=== PATIENT | female | born 1965 | race Caucasian/White ===

== ENCOUNTER 2024-04-17 23:15 | Inpatient (IN) | payer OTHER, SELFPAY ==
[2024-04-17 19:53] VITALS: BMI 27.4
[2024-04-17 19:54] VITALS: BP 141/78
[2024-04-17 20:15] LABS: % Basophils 0.8 % (0-2); % Eosinophils 1.2 % (0-6); % Immature Granulocytes 0.3 % (0-0.5); % Monocytes 5.8 % (1.7-9.3); % Neutrophils 83.9 % (42.2-75.2); Absolute Basophils 0.1 10^3/uL (0-0.2); Absolute Eosinophils 0.1 10^3/uL (0-0.7); Absolute Lymphocytes 0.9 10^3/uL (1.2-3.4); Absolute Monocytes 0.7 10^3/uL (0.1-0.6); Absolute Neutrophils 9.5 10^3/uL (1.4-6.5); Hemoglobin 12.7 g/dL (12.0-16.0); Mean Corp Hgb Conc. 35.3 g/dL (33.0-37.0); Mean Corpuscular Hgb 29.7 pg (27.0-31.0); Mean Corpuscular Volume 84.1 fL (81.0-99.0); Mean Platelet Volume 10.2 fL (7.4-10.4); Nucleated Red Blood Cells % 0 %; Platelet Count 242 10^3/uL (130-400); Red Blood Cell Count 4.28 10^6/uL (4.20-5.40); Red Cell Dist. Width 13.2 % (11.5-14.5); White Blood Cell Count 11.3 10^3/uL (4.8-10.8)
[2024-04-17 20:55] LABS: AST (SGOT) 499 U/L (14-36); Albumin 3.9 g/dl (3.5-5.0); Alkaline Phosphatase 207 U/L (38-126); Blood Urea Nitrogen 16 mg/dl (7-17); Calcium 9.1 mg/dl (8.4-10.2); Chloride 109 mmol/L (98-107); Glucose 141 mg/dl (70-99); Potassium 4.5 mmol/L (3.5-5.1); Sodium 138 mmol/L (135-145); Total Bilirubin 6.1 mg/dl (0.2-1.3); Total Protein 6.7 g/dl (6.3-8.2); eGFR > 60.00
--- NOTE | 2024-04-17 21:15 | ED.GENMED ---
History of Present Illness
General
Chief Complaint: Abdominal Pain
Source: patient
Exam Limitations: none
Time Seen by Provider: 04/17/24 21:06
Travel History
Have you had any contact with someone who has COVID-19?: No
Do you have any symptoms of coronavirus? Fever > 100 degrees, chills, cough, shortness of breath, sore throat, loss of taste or smell, muscle aches, or headache?: No
History of Present Illness
History of Present Illness:
This is a 58 year old female that comes in with c/o upper abd pain. States that this pain started on Thursday in the upper abd. States that she feels bloated. States that she also has back pain. State that it started [place] the [place] so she
went home and used a heating pad. States that the pain was decreased on Thursday. Today the pain got worse and she is vomiting. States that she had chest pain, SOB and pain with deep breathing. Denies any fever, chills, diarrhea, headache,
dizziness, urinary burning.
Past History
Past History
ED Past Medical History: None; Negative Asthma, HTN, Hypercholesterolemia or NIDDM
ED Past Surgical History: , Orthopedic (right knee surgery) and Other (Breast augmentation, Vericous veins)
Social History
Tobacco: Former smoker
Alcohol: Occasional
Personal:
Living: with family
Review of Systems
Review of Systems
All Other Systems: ROS reviewed and negative except as documented in HPI and ROS
Constitutional: Reports no symptoms; Denies fever or chills
EENT: Reports no symptoms
Respiratory: Reports trouble breathing; Denies cough
Cardiac: Denies chest pain
ABD/GI: Reports abdominal pain, nausea and vomiting; Denies diarrhea
: Reports no symptoms; Denies dysuria, frequency or urgency
Musculoskeletal: Reports no symptoms
Skin: Reports no symptoms
Neurological: Reports no symptoms; Denies dizzy or headache
Psychiatric: Reports no symptoms
Phy Exam
General Physical Exam
General Presentation: mild distress
General age: appears stated age
General Skin: warm and dry
General Habitus: normal
General Mental: alert
General Hydration: appears well hydrated
ENT Exam
ENT Exam: TM's normal, pharynx normal and neck supple
Eye Exam
Eye Exam: EOMI
Cardiovascular Exam
Cardiovascular Exam: regular rate/rhythm, no edema, no murmur and normal peripheral pulses
Pulmonary Exam
Pulmonary Exam: lungs clear, no respiratory distress, no rales, chest non tender, no crackles, no rhonchi, no wheezing and no cough
Gastrointestinal Exam
Gastrointestinal Exam: normal bowel sounds, soft, no organomegaly, no pulsatile mass, non distended and tender (right upper abd tenderness with palpation)
Musculoskeletal Exam
Musculoskeletal Exam: full ROM and no edema
Skin Exam
Skin Exam: normal color, warm/dry, no rash and no petechia
Psychiatric Exam
Psychiatric Exam: normal mood/affect
Course
Orders/Labs/Results
Orders:
Orders
04/17/24 19:57
Electrocardiogram (*1) Urgent
Reason for Study: Abdominal Pain
EKG- Treatment ONCE
04/17/24 20:10
Complete Blood Count/With Diff Urgent
Comprehensive Metabolic Panel Urgent
Direct Bilirubin Urgent
Comment: ADD ON
Lipase Urgent
04/17/24 21:14
HYDROmorphone [Dilaudid] 0.5 mg IV NOW STA
Ondansetron Injectable [Zofran] 4 mg IV NOW STA
US Abdomen Complete/Upper Urgent
Comment:
Reason For Exam: Right upper abd pain
04/17/24 21:15
0.9% Sodium Chloride 1000 ml [Nss] 1,000 ml IV BOLUS
04/17/24 21:17
Add On- LAB Urgent
Tests Added?: Direct isacc
Electrocardiogram (*1) Urgent
Reason for Study: Abdominal Pain
EKG- Treatment ONCE
CR Chest - 2 Views Urgent
Comment:
Reason For Exam: SOB
04/17/24 21:27
Troponin I Urgent
04/17/24 22:10
HYDROmorphone [Dilaudid] 1 mg .ROUTE .STK-MED ONE
04/17/24 22:11
HYDROmorphone [Dilaudid] 1 mg IV NOW STA
Abnormal Lab Results
04/17/24
20:10
WBC 11.3 H 10^3/uL
(4.8-10.8)
Hct 36.0 L %
(37.0-47.0)
Absolute Neuts (auto) 9.5 H 10^3/uL
(1.4-6.5)
Absolute Lymphs (auto) 0.9 L 10^3/uL
(1.2-3.4)
Absolute Monos (auto) 0.7 H 10^3/uL
(0.1-0.6)
Neutrophils % 83.9 H %
(42.2-75.2)
Lymphocytes % 8.0 L %
(20.5-51.1)
Chloride 109 H mmol/L
(98-107)
Carbon Dioxide 16 L mmol/L
(22-30)
Glucose 141 H mg/dl
(70-99)
Total Bilirubin 6.1 H mg/dl
(0.2-1.3)
Direct Bilirubin 4.5 H mg/dl
(0.0-0.4)
AST 499 H U/L
(14-36)
ALT 1076 H* U/L
(0-35)
Alkaline Phosphatase 207 H U/L
(38-126)
04/17/24 20:10
04/17/24 20:10
WBC very slightly elevated. Chloride elevated. Glucose nonfasting. Total isacc elevation. AST/ALT elevation, Alk phos elevation. Direct isacc elevated at 4.5,
Vital Signs
Initial and Last Documented VS:
Initial Vital Signs
Temp Pulse Resp BP Pulse Ox
98.2 F 71 14 141/78 99
04/17/24 19:54 04/17/24 19:54 04/17/24 19:54 04/17/24 19:54 04/17/24 19:54
Last Documented Vital Signs
Temp Pulse Resp BP Pulse Ox
98.2 F 71 14 141/78 99
04/17/24 19:54 04/17/24 19:54 04/17/24 19:54 04/17/24 19:54 04/17/24 19:54
MDM/Problems Addressed
Differential Diagnosis Includes:
Gallbladder disease,
MDM/Problems Addressed:
This is a 58 year old female that comes in with c/o upper abd pain. States that this started on Thursday. IT was better on Thursday and today it was worse.
Will get labs, US, give IV fluids, chest X-ray and medicate for pain.
Back into see patient. Explained that she would be admitted due to acute cholecystitis. Attempted to have General surgery admit patient but they felt Hospitalist would be better. Will give IV antibiotics and admit. Hospitalist notified.
Chronic conditions affecting care:
NA
Acute Exacerbation and/or Progression of Chronic Illness:
NA
*Radiology
Radiology exam reviewed: radiology read reviewed (US-Multiple small gallstones. Mild common bile duct dilation. These findings can be seen with acute cholecystitis. Clinical and laboratory Correlation recommended. Nonvisualization of pancreas and
proximal IVS> Mild hepatomegaly. )
*Pulse Oximetry
Patient hypoxic: no
*EKG
Interpreted by ED Provider?: NA
Rate: EKG- N/A
*Supervisor Shaving And Splitting Interpretation
Rate: Supervisor Shaving And Splitting- N/A
*Critical Care Note
Total Time (30-74mins, 75-104mins- exclusive of procedures): Not Applicable
ED Attending Note
-
Portions of this chart may have been created with voice recognition software.� Occasional wrong word or��sound alike� substitutions may have occurred due to the inherent limitations of voice recognition software.
Discharge Plan
Departure
Patient Disposition: Admit
Date of Disposition: 04/17/24
Time of Disposition: 22:27
Admit to: Med/Surg
Presentation/result/management discussed w/ accepting MD/DO: Hospitalist
Patient with high blood pressure during this ER visit?: Yes
Condition: Good
Covid-19: Not Applicable
Discharge Problem:
Acute cholecystitis, Elevated liver enzymes
Referrals:
UNKNOWN - PT DOES,NOT KNOW [Family Provider] -
Interventions
Interventions:
*Risk Screen - Suicide Last Done: 04/17/24 19:54
*General Assessment Last Done: 04/17/24 19:54
*Neglect/Abuse Screening Last Done: 04/17/24 19:54
Discharge Date and Time
Print Language: GAMBIAN
[2024-04-17 21:16] LABS: ALT (SGPT) 1076 U/L (0-35)
[2024-04-17] MEDS: DILAUDID 0.5 MG IV (21:18)
[2024-04-17] MEDS: ZOFRAN 4 MG IV (21:18)
[2024-04-17] MEDS: NSS 1000 IV (21:19)
[2024-04-17 21:38] LABS: Carbon Dioxide 16 mmol/L (22-30)
[2024-04-17 21:56] LABS: Direct Bilirubin 4.5 mg/dl (0.0-0.4)
[2024-04-17] MEDS: DILAUDID 1 MG IV (22:11)
[2024-04-17 22:16] LABS: Troponin I < 0.012 ng/ml
--- NOTE | 2024-04-17 22:34 | HPS.HSE ---
Addendum entered and electronically signed by Justino Tirado DO 04/17/24 23:36:
Patient seen and examined independently. Agree with findings and plan as set forth by JOHNNIE Medina.
Patient is a 58y F with no significant PMH who presents to ED complaining of abdominal pain, N/V. Patient states that her current symptoms started on Thursday. The following day she felt somewhat improved; however, today the symptoms returned.
She had a similar episode about one month ago which resolved within 24 hours. Evaluation in the ED today is consistent with acute calculous cholecystitis.
Ass:
Acute Calculous Cholecystitis
Abnormal LFTs
Plan:
Admit for further evaluation and treatment.
NPO, IVFs, IV abx and pain control.
Surgery evaluation for cholecystectomy.
GI evaluation given LFT pattern - ? ERCP.
Original Note:
Family Physician
-
Family Physician: NOT KNOW UNKNOWN - PT DOES
Chief Complaint
-
Right upper abdominal pain, nausea, vomiting
History of Present Illness
58-year-old female complaining of upper abdominal pain started on Thursday 2 days ago along with bloating and back pain. She reports the pain became worse today when she started vomiting along with taking a deep breath. She states she was in [place] approximately 6 weeks ago when she had similar pain she went to an urgent care where they gave her some IV fluids and Zofran she was sent home and told she had a 'stomach virus'. She denies fever, chills, cough, chest pain, palpitations,
urinary symptoms. Past medical history includes former smoker, section, breast augmentation, varicose vein repair, right knee surgery, renal calculi 10 years ago
Medical History
Past Medical History
Past Medical History: Reports Other
Additional Past Medical History:
Former smoker
Renal calculi 10 years ago passed on own
Past Surgical History: Reports Other
Additional Past Surgical History:
section
Knee surgery
breast augmentation, varicose vein repair,
right knee surgery meniscus repair
Social History
Tobacco: Former Smoker (Quit age 21)
Alcohol: Occasional
Drug: None
Personal:
Living: With Family ( Ph[place])
Employment: Retired
Family History
Family History: Other (Father [place] age 84, mother living age 88 hypertension, DM 2, history of intestinal torsion)
Allergies / Home Medications
Allergies reflects when Allergies were last updated in [employer].
Home Medications with original date entered in [employer]
Allergy/Medication List:
Allergies
Allergy/AdvReac Type Severity Reaction Status Date / Time
No Known Allergies Allergy Unverified 04/17/24 19:53
Review of Systems
-
History Source: Patient
A 12 point ROS was completed and negative except as noted: Yes
Constitutional: Denies Fever or Chills
EENT: Denies Sore Throat or Runny Nose
Respiratory: Denies Cough or Trouble Breathing
Cardiac: Reports Chest Pain (Right-sided to back); Denies Diaphoresis, Palpitations or Syncope
Abdomen/GI: Reports Abdominal Pain (Right upper quadrant /midepigastric), Nausea and Vomiting; Denies Diarrhea, Constipated, Bloody Stools or Black Stools
: Denies Dysuria, Frequency, Flank Pain, Incontinence, Difficulty Voiding or Urgency
Musculoskeletal: Denies Joint Pain or Edema
Skin: Denies Itching or Rash
Neurological: Denies Dizzy, Headache or Weakness
Endocrine: Reports No Symptoms
Hematologic/Lymphatic: Reports No Symptoms
Psych: Reports Calm
Physical Exam
Vital Signs
Vital Signs
Temp Pulse Resp BP Pulse Ox
98.2 F 71 14 141/78 99
04/17/24 19:54 04/17/24 19:54 04/17/24 19:54 04/17/24 19:54 04/17/24 19:54
Physical Exam
General: Comfortable and Conversant; No Fever or Chills
HEENT: NormoCephalic, Anicteric, Moist mucous membranes, PERRLA, Pesotum Conjunctivae and No Ptosis
Respiratory: Clear; No Wheezes, Rales or Rhonchi
Cardiac: S1/S2 and Regular Rhythm; No Murmur, Rub, Gallop or Peripheral Edema
GI: Soft, Non Distended, Normal Bowel Sounds, Tender (Right upper quadrant, midepigastric) and No Hepatosplenomegaly
Rectal: Deferred by Provider
Genito-urinary: Deferred by me
Musculoskeletal: No Clubbing, No Cyanosis and No Edema
Skin: Warm and Dry; No Rash
Neuro: AO x 3, No Motor Deficits, Nonfocal/grossly intact, Cranial Nerves Intact and No Sensory Deficits; No Slurred Speech, Facial Droop or Tremors
Psych: Calm
Laboratory Results
-
04/17/24 20:10
04/17/24 20:10
Laboratory Results
Total Bilirubin 6.1 mg/dl (0.2-1.3) H 04/17/24 20:10
AST 499 U/L (14-36) H 04/17/24 20:10
ALT 1076 U/L (0-35) H* 04/17/24 20:10
Alkaline Phosphatase 207 U/L (38-126) H 04/17/24 20:10
Troponin I < 0.012 ng/ml 04/17/24 21:27
Data Reviewed
-
CT Scan: Report Reviewed by me
Lab Data: Labs Reviewed by me
Impression/Plan
-
Impression/plan:
Admit to [facility]
#Acute cholecystitis with Acute transaminitis with CBD duct dilatation
WBC 11.3 with left shift, 98 2, HR 71, 141/78
-N.p.o.
-IV NSS
-IV Zofran, IV pain control
-IV Zosyn
-Iv PPI
-Consult surgery
-Follow CBC, CMP
Abdominal ultrasound:Multiple small gallstones. Mild common bile duct dilatation. These findings can be seen with acute cholecystitis.
#Former smoker
quit at age 21
#Hx of renal calculi 10 years ago
-Reports past unknown
#Breast augmentation hx
#Varicose vein repair hx
Dvt proph
- scd's
Full code
[2024-04-17 22:47] VITALS: BP 131/78
[2024-04-17] MEDS: ZOSYN 50 IV (23:07)
[2024-04-17 23:15] LABS: Lipase > 4000 U/L (23-300)
[2024-04-18] VITALS (13 sets, daily range): BP systolic 12–139; BP diastolic 53–87; BMI 28.7
[2024-04-18] MEDS: DILAUDID 1 MG IV ×3 (03:35→12:32)
[2024-04-18] MEDS: NSS 1000 IV ×4 (03:39→22:08)
[2024-04-18] MEDS: ZOSYN 50 IV ×3 (06:00→17:47)
[2024-04-18 06:15] LABS: % Basophils 0.4 % (0-2); % Eosinophils 1.3 % (0-6); % Immature Granulocytes 0.3 % (0-0.5); % Lymphocytes 14.9 % (20.5-51.1); % Monocytes 6.8 % (1.7-9.3); % Neutrophils 76.3 % (42.2-75.2); Absolute Eosinophils 0.1 10^3/uL (0-0.7); Absolute Lymphocytes 1.4 10^3/uL (1.2-3.4); Absolute Monocytes 0.6 10^3/uL (0.1-0.6); Hematocrit 35.4 % (37.0-47.0); Hemoglobin 11.9 g/dL (12.0-16.0); Mean Corp Hgb Conc. 33.6 g/dL (33.0-37.0); Mean Corpuscular Hgb 29.3 pg (27.0-31.0); Mean Corpuscular Volume 87.2 fL (81.0-99.0); Mean Platelet Volume 11.2 fL (7.4-10.4); Nucleated Red Blood Cells % 0 %; Platelet Count 244 10^3/uL (130-400); Red Blood Cell Count 4.06 10^6/uL (4.20-5.40); Red Cell Dist. Width 13.3 % (11.5-14.5); White Blood Cell Count 9.1 10^3/uL (4.8-10.8)
--- NOTE | 2024-04-18 06:21 | PTCARENOTE ---
Pt admitted from ED at aprox 0200. Admission and assessment completed. IVF started to [facility]. Vitals stable. Pt with no c/o at that time. Son in room with patient. All questions answered. Pt due for MRI this am. Pt instructed to ring for assistance.
--- NOTE | 2024-04-18 06:22 | CON.GI ---
Consultation
-
Date/Time Consultation Performed: 04/18/2024
Performing Provider: Castillo Goodman MD
Reason for Consultation: abdominal pain, elevated LFT
Medical History
Chief Complaint / HPI
Chief Complaint: abdominal pain
History of Present Illness:
The patient is a 58-year-old female with past medical history as noted who presents abdominal pain and nausea. She had an episode about 6 weeks ago with similar symptoms which was self-limited, and interim have been doing well up until more
recently with the past several days has had a couple of episodes of severe pain, she describes as sharp, epigastrium, rating to the right side and back with associated nausea. Upon presentation she was found to have markedly elevated LFTs, and
ultrasound that showed gallstones though no significant pericholecystic fluid or gallbladder wall thickening, along with mild CBD dilation. She feeling better today with no further significant pain. She is noted dark urine over the past several
days during this time. She usually has no GI symptoms, last colonoscopy in [place] and okay by report. She denies any significant alcohol over the last week.
Past Medical History
Past Medical History: Other (kidney stones)
Past Surgical History: Other ( section Knee surgery breast augmentation, varicose vein repair, right knee surgery meniscus repair)
Social History
Tobacco: Former Smoker
Alcohol: Occasional
Family History
Family History: Reviewed & Not Pertinent
Allergies / Home Medications
Allergy/AdvReac Type Severity Reaction Status Date / Time
No Known Allergies Allergy Unverified 04/17/24 19:53
Review of Systems
-
All other systems: A 12 pt ROS was Negative except as stated above in HPI
Vital Signs
Temp Pulse Resp BP Pulse Ox
98.5 F 65 18 134/53 95
04/18/24 02:13 04/18/24 02:13 04/18/24 02:13 04/18/24 02:13 04/18/24 02:13
Physical Exam
Exam
General: NAD
HEENT: MMM, anicteric, no lymphadenopathy
Heart: Regular, no murmurs
Lungs: CTA bilaterally
Abdomen: normal bowel sounds, soft, mild right upper quadrant tenderness, no rebound or guarding, no masses, bruits or ascites
Extremeties: no edema
Skin: no rashes
Results
WBC 9.1 10^3/uL (4.8-10.8) 04/18/24 04:20
Hgb 11.9 g/dL (12.0-16.0) L 04/18/24 04:20
Hct 35.4 % (37.0-47.0) L 04/18/24 04:20
MCV 87.2 fL (81.0-99.0) 04/18/24 04:20
Plt Count 244 10^3/uL (130-400) 04/18/24 04:20
Absolute Neuts (auto) 7.0 10^3/uL (1.4-6.5) H 04/18/24 04:20
Sodium 138 mmol/L (135-145) 04/17/24 20:10
Potassium 4.5 mmol/L (3.5-5.1) 04/17/24 20:10
Chloride 109 mmol/L (98-107) H 04/17/24 20:10
Carbon Dioxide 16 mmol/L (22-30) L 04/17/24 20:10
BUN 16 mg/dl (7-17) 04/17/24 20:10
Creatinine 0.7 mg/dL (0.6-1.0) 04/17/24 20:10
Calcium 9.1 mg/dl (8.4-10.2) 04/17/24 20:10
Total Bilirubin 6.1 mg/dl (0.2-1.3) H 04/17/24 20:10
AST 499 U/L (14-36) H 04/17/24 20:10
ALT 1076 U/L (0-35) H* 04/17/24 20:10
Alkaline Phosphatase 207 U/L (38-126) H 04/17/24 20:10
Lipase > 4000 U/L (23-300) H* 04/17/24 20:10
Diagnostic Image Results:
US:
IMPRESSION: Multiple small gallstones. Mild common bile duct dilatation. These findings can be seen with acute cholecystitis. Clinical and laboratory correlation recommended.
Nonvisualization of pancreas and proximal IVC.
Mild hepatomegaly
Prior GI Procedures:
EGD:
Colonoscopy:
Assessment / Plan
-
1. Abdominal pain: With markedly elevated LFTs, gallstones noted on ultrasound with mild duct dilation, though no other suggestion of cholecystitis, most consistent with CBD stone. Her lipase was also greater than 4000, likely some component of
pancreatitis. At this point again her pain is improved, possibly passed CBD stone versus ball-valve effect. Will continue n.p.o., IV fluids, check MRI. If MRI is negative and LFTs improving then would assume passed stone, surgery consulted for
cholecystectomy.
-
-
Thank you for consultation and allowing me to participate in the patient's care. Please call the blood bank order control clerk GI physician during the after hours with any questions or concerns.
[2024-04-18 06:41] LABS: AST (SGOT) 346 U/L (14-36); Albumin 3.5 g/dl (3.5-5.0); Alkaline Phosphatase 184 U/L (38-126); Blood Urea Nitrogen 12 mg/dl (7-17); Calcium 8.5 mg/dl (8.4-10.2); Carbon Dioxide 20 mmol/L (22-30); Chloride 110 mmol/L (98-107); Estimated Creatinine Clearance 112 ml/min; Glucose 93 mg/dl (70-99); HDL Cholesterol 80 mg/dl; LDL Cholesterol, Calculated 70 mg/dl; Potassium 4.1 mmol/L (3.5-5.1); Sodium 137 mmol/L (135-145); Total Bilirubin 5.3 mg/dl (0.2-1.3); Total Cholesterol 160 mg/dl (50-199); Total Protein 5.9 g/dl (6.3-8.2); Triglyceride 51 mg/dl (10-149); Very Low Density Lipoprotein 10 mg/dl (0-30); eGFR > 60.00
[2024-04-18 06:58] LABS: ALT (SGPT) 906 U/L (0-35)
[2024-04-18] MEDS: PROTONIX IV 40 MG IV (08:17)
[2024-04-18] MEDS: NSS (PRESERVATIVE FREE) 10 ML IV (08:17)
--- NOTE | 2024-04-18 08:37 | CON.GS ---
Medical History
-
Chief Complaint: Abdominal pain
History of Present Illness:
Patient is a 58 yo F with a PMH of s/p , s/p breast augmentation, s/p varicose vein repair, and recently s/p RIGHT knee meniscus repair who presents to the hospital with epigastric and RUQ abdominal pain. She states that her symptoms began
a few days ago and have intermittently progressed since that time. She also reports a similar episode which self resolved approximately 6 weeks ago. She describes severe pain in the epigastrium and RUQ radiating to her back. Symptoms currently
have improved. Associated nausea. She reports jaundice, pale stools, and tea colored urine. No significant alcohol intake. No significant NSAID use. No reported issues with cholesterol.
Past Medical History
Past Medical History: None
Past Surgical History: , Orthopedic (RIGHT knee meniscus) and Other (Breast augmentation, varicose vein)
Social History
Tobacco: Non-Smoker
Alcohol: Occasional
Drug: None
Personal:
Living: With Family
Employment: Employed
Family History
Family History: Other (Mother and father may have had their gallbladders removed, uncertain)
Allergies / Home Medications
Allergy/AdvReac Type Severity Reaction Status Date / Time
No Known Allergies Allergy Unverified 04/17/24 19:53
�Medication �Instructions �Recorded �Confirmed �Type
No Meds [No Current Medications] 04/18/24 04/18/24 History
Review of Systems
-
A 10 point review of systems was completed, and was negative except as per HPI.
Physical Exam
Vital Signs
Temp Pulse Resp BP Pulse Ox
98.5 F 69 17 128/75 96
04/18/24 07:00 04/18/24 07:00 04/18/24 07:00 04/18/24 07:00 04/18/24 07:00
04/17/24 04/18/24 04/19/24
06:59 06:59 06:59
Actual Weight 83.121 kg
Body Mass Index (BMI) 28.7
Lab Results
04/18/24 04:20
04/18/24 04:20
WBC 9.1 10^3/uL (4.8-10.8) 04/18/24 04:20
Hgb 11.9 g/dL (12.0-16.0) L 04/18/24 04:20
Hct 35.4 % (37.0-47.0) L 04/18/24 04:20
Plt Count 244 10^3/uL (130-400) 04/18/24 04:20
Abs Immat Gran (auto) 0.0 10^3/uL (0-0.05) 04/18/24 04:20
Neutrophils % 76.3 % (42.2-75.2) H 04/18/24 04:20
Physical Exam
General: Well Developed, Well Nourished and No Apparent Distress
HEENT: Scleral Icterus
Respiratory: Non Labored Respirations
Cardiac: Regular Rhythm
GI: Soft, Non Distended, Tender (Epigastrium and RUQ with deep palpation) and Other (Nonperitoneal (no rebound or guarding))
Musculoskeletal: No Edema
Skin: Warm and Dry
Neuro: Nonfocal/Grossly Intact
Data Reviewed
-
Ultrasound: Image Personally Visualized and interpreted
Labs: Labs Reviewed by me
Assessment / Plan
-
Patient is a 58 yo F p/w gallstone pancreatitis
Natural history and pathophysiology of biliary and stone disease was discussed. Anatomy was reviewed utilizing pictorial images. Workup including ultrasound and labs were reviewed. Role of cholecystectomy and preventing future episodes of
pancreatitis and choledocholithiasis was reviewed. Timing of cholecystectomy TBD. GI consult noted. Plan for MRI today. All questions answered.
-- No plans for cholecystectomy today, timing TBD
-- GI consult noted, MRCP ordered
-- NPO, IVF
-- Abx: Zosyn
--- NOTE | 2024-04-18 09:30 | PTOTSP ---
Received order for PT from the ED and reviewed chart. Observed pt get OOB and ambulate into hallway without an assistive device, with steady gait, and get onto stretcher for test without any difficulty. No observed PT needs were identified. Will
sign off.
--- NOTE | 2024-04-18 11:24 | W.PN.HOSP.TC ---
Today's Communication/Plan
-
IVF
Zosyn
ERCP
Eventual cholecystectomy.
Assessment / Plan
Assessment / Plan
58-year-old female with right upper quadrant pain nausea vomiting. She was in [place] 6 weeks ago and had similar pain went to urgent care was treated with Zofran and IV fluids and was discharged.
MRI/MRCP-acute obstructing choledocholithiasis. Moderate extrahepatic and intrahepatic biliary dilatation proximal to the obstruction. Severely distended gallbladder containing stones. Acute interstitial edematous pancreatitis. Mild
hepatomegaly. 8.6 cm enhancing mass in the lateral left breast
USS abdomen-Multiple small gallstones. Mild common bile duct dilatation. These findings can be seen with acute cholecystitis. Clinical and laboratory correlation recommended.Nonvisualization of pancreas and proximal IVC.Mild hepatomegaly
CVS: S1-S2 normal
Chest: CTA B/L
Abdomen: Soft, mild mid bdomen tenderness, Bowel sounds present
Extremities: No edema
VASC TECH: Non focal exam
# Acute calculus cholecystitis with abnormal LFTs
Choledocholithiasis
N.p.o. IV fluids
Surgery following for cholecystectomy timing to be determined
Continue Zosyn
GI consulted for ERCP-Possibly today
# Gallstone pancreatitis likely
IV fluids
N.p.o.
Add on and follow lipase
# Metabolic acidosis-improving
# Breast mass-patient is aware that she needs eval evaluation as outpatient including mammogram/ultrasound
Dr.Donna Li's information given
#Alcohol use 2 glasses (Wine or Vodka) 3 times a week
Thiamine
# Quit smoking when she was 21 years old.
# DVT prophylaxis-Lovenox
# Full code
Discussed with and daughters at bed side
D/W RN
D/W GI
Anticipated Discharge: > 48 hours
Subjective/Interval History
-
Date of Service: April 18, 2024
Objective Data
-
Labs:
Laboratory Results
04/18/24
04:20
WBC 9.1
Hgb 11.9 L
Hct 35.4 L
Plt Count 244
Sodium 137
Potassium 4.1
Chloride 110 H
Carbon Dioxide 20 L
BUN 12
Creatinine 0.5 L
Glucose 93
Calcium 8.5
Total Bilirubin 5.3 H
AST 346 H
ALT 906 H*
Alkaline Phosphatase 184 H
Vital Signs:
Vital Signs
Temp Pulse Resp BP Pulse Ox
98.5 F 69 17 128/75 96
04/18/24 07:00 04/18/24 07:00 04/18/24 07:00 04/18/24 07:00 04/18/24 07:00
I&O
04/17/24 04/18/24 04/19/24
06:59 06:59 06:59
Intake Total 500 / 500
Balance 500 / 500
[2024-04-18 12:33] LABS: Lipase > 4000 U/L (23-300)
[2024-04-18] MEDS: THIAMINE INJECTION 200 MG IV (12:39)
--- NOTE | 2024-04-18 14:21 | CM ---
Attempted to meet with patient who was in surgery. Initial assessment completed with 2 daughters. Currently, patient lives with her in a 2 story home with B/B on 1st and 2nd floors with 1 step to enter ([place]). They have a primary
home on [address]. Patient has no DME or in-home services. 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 No history of psychiatric hospitalizations. [facility]acy is [facility] in [place] and PCP is Dr. Gasca in [place]. Discharge Plan of Care: Anticipate no needs.
--- NOTE | 2024-04-18 16:28 | PTOTSP ---
Orders received. Chart reviewed. Pt currently at independent level with basic self care, transfers and functional mobility in room and bathroom. Skilled OT services not indicated at this time. Will sign off.
--- NOTE | 2024-04-18 17:36 | CON.GS ---
Consultation
-
Date/Time Consultation Requested: 04/19/24 12:35
Date/Time Consultation Performed: 04/19/24 17:37
Requesting Provider: Kenisha
Performing Provider: Jen
Reason for Consultation: Left breast mass seen on MRI of abdomen
Medical History
-
Chief Complaint: Here for several days of abdominal pain; incidental mass seen on MRI of abd
History of Present Illness:
The patient is a 58 Y/O female with no increased risk for breast cancer other than a sister who had melanoma. She was admitted for choledocholithiasis and cholecystitis and underwent an ERCP today with sphincterotomy, stone extraction. Her MRI of
the abdomen showed a left breast mass. Patient had silicon implants placed 3 years ago in [place]. She has a history of surgical resection of a symptomatic left breast fibroadenoma about 13 years ago in a different quadrant of her left breast. She
denies feeling any masses or having any skin change, pain, or discharge. She is overdue for mammography and is post-menopausal.
Past Medical History
Past Medical History: Reviewed & Noncontributory
Social History
Tobacco: Non-Smoker
Personal:
Living: With Family
Family History
Family History: Reviewed & Not Pertinent
Allergies / Home Medications
Allergy/AdvReac Type Severity Reaction Status Date / Time
No Known Allergies Allergy Unverified 04/17/24 19:53
�Medication �Instructions �Recorded �Confirmed �Type
No Meds [No Current Medications] 04/18/24 04/18/24 History
Review of Systems
-
History Source: Patient
All other systems: Negative unless noted
A 10 point review of systems was completed, and was negative except as per HPI.
Physical Exam
Vital Signs
Temp Pulse Resp BP Pulse Ox
98.2 F 68 16 139/87 96
04/18/24 16:00 04/18/24 16:00 04/18/24 16:00 04/18/24 16:00 04/18/24 16:00
04/17/24 04/18/24 04/19/24
06:59 06:59 06:59
Actual Weight 83.121 kg
Body Mass Index (BMI) 28.7
Lab Results
04/18/24 04:20
04/18/24 04:20
WBC 9.1 10^3/uL (4.8-10.8) 04/18/24 04:20
Hgb 11.9 g/dL (12.0-16.0) L 04/18/24 04:20
Hct 35.4 % (37.0-47.0) L 04/18/24 04:20
Plt Count 244 10^3/uL (130-400) 04/18/24 04:20
Abs Immat Gran (auto) 0.0 10^3/uL (0-0.05) 04/18/24 04:20
Neutrophils % 76.3 % (42.2-75.2) H 04/18/24 04:20
Physical Exam
General: Well Developed, Well Nourished and No Apparent Distress
HEENT: Normocephalic and Anicteric
Respiratory: Clear
Breast: Other (bilateral implants in place, no adenopathy, no palpable masses)
Musculoskeletal: No Clubbing and No Cyanosis
Skin: Warm and Dry
Neuro: Awake and Alert
Hematologic/Lymphatic: No Lymphadenopathy
Psych: Calm
Data Reviewed
-
Radiology: Image Personally Visualized and interpreted
MRI: Image Personally Visualized and interpreted
Medical Tests (Nuc Med, Echo etc): Discussed with Patient
Labs: Labs Reviewed by me
Total Time Spent with Patient (in minutes): 15
Assessment / Plan
-
Left breast mass found incidentally. Imaging indicates most likely benign lymph node or another fibroadenoma. This can be worked up as an outpatient. Will send orders to [facility].
Pt should focus on GI issues and recovery. Family informed and feels relieved.
[2024-04-18] MEDS: LOVENOX 40 MG SC (17:47)
[2024-04-19] VITALS (11 sets, daily range): BP systolic 113–125; BP diastolic 52–73
[2024-04-19] MEDS: ZOSYN 50 IV ×4 (00:59→17:35)
[2024-04-19] MEDS: NSS IV (03:36)
[2024-04-19] MEDS: NSS 1000 IV ×4 (04:04→22:07)
--- NOTE | 2024-04-19 06:26 | W.PN.GI.CBS2 ---
Today's Communication / Plan
-
no other GI intervention
Assessment / Plan
-
Pt with CBD stone s/p ERCP, cholecystitis. Pain improved markedly after ERCP
- surgery following for cholecystectomy
no other GI intervention at this point.
will sign off call with questions.
Subjective
Subjective
Date of Service: April 19, 2024
Pt w/o any pain after the ERCP. No nausea/vomiting
Objective
Data Reviewed
Laboratory Data:
Laboratory Results
Total Bilirubin 5.3 mg/dl (0.2-1.3) H 04/18/24 04:20
AST 346 U/L (14-36) H 04/18/24 04:20
ALT 906 U/L (0-35) H* 04/18/24 04:20
Alkaline Phosphatase 184 U/L (38-126) H 04/18/24 04:20
Lipase > 4000 U/L (23-300) H* 04/18/24 04:20
Vital Signs and I&O:
Vital Signs
Temp Pulse Resp BP Pulse Ox
99 F 61 18 134/76 98
04/18/24 23:19 04/18/24 23:19 04/18/24 23:19 04/18/24 23:19 04/18/24 23:19
I&O
04/17/24 04/18/24 04/19/24
06:59 06:59 06:59
Intake Total 500 / 500 2980 / 2980
Balance 500 / 500 2980 / 2980
Physical Exam
Physical Exam
GI: Soft and Non Tender
[2024-04-19 06:32] LABS: Hematocrit 31.1 % (37.0-47.0); Hemoglobin 10.6 g/dL (12.0-16.0); Mean Corp Hgb Conc. 34.1 g/dL (33.0-37.0); Mean Corpuscular Hgb 29.4 pg (27.0-31.0); Mean Corpuscular Volume 86.4 fL (81.0-99.0); Platelet Count 199 10^3/uL (130-400); Red Cell Dist. Width 13.4 % (11.5-14.5); White Blood Cell Count 8.3 10^3/uL (4.8-10.8)
[2024-04-19 07:03] LABS: ALT (SGPT) 556 U/L (0-35); AST (SGOT) 136 U/L (14-36); Albumin 2.8 g/dl (3.5-5.0); Alkaline Phosphatase 158 U/L (38-126); Blood Urea Nitrogen 9 mg/dl (7-17); Calcium 7.9 mg/dl (8.4-10.2); Carbon Dioxide 21 mmol/L (22-30); Chloride 112 mmol/L (98-107); Direct Bilirubin 1.4 mg/dl (0.0-0.4); Estimated Creatinine Clearance 112 ml/min; Glucose 93 mg/dl (70-99); Sodium 138 mmol/L (135-145); Total Bilirubin 2.3 mg/dl (0.2-1.3); Total Protein 5.1 g/dl (6.3-8.2); eGFR > 60.00
[2024-04-19 07:47] LABS: Lipase 2991 U/L (23-300)
[2024-04-19] MEDS: THIAMINE INJECTION 200 MG IV (08:10)
[2024-04-19] MEDS: NSS (PRESERVATIVE FREE) 10 ML IV (08:10)
[2024-04-19] MEDS: PROTONIX IV 40 MG IV (08:10)
--- NOTE | 2024-04-19 08:33 | W.PN.GS2 ---
Today's Communication / Plan
-
-- Laparoscopic cholecystectomy
Assessment / Plan
-
Patient is a 58 yo F p/w gallstone pancreatitis
PPD#1 s/p ERCP with stone removal
Clinically improved. Less abdominal pain. Labs trending down.
Natural history and pathophysiology of biliary and stone disease has been discussed. Anatomy has been reviewed. Role of cholecystectomy and preventing future episodes of gallstone pancreatitis was discussed. Recommend cholecystectomy.
Plan for a laparoscopic cholecystectomy with possible cholangiogram. The procedure itself, as well as the risks, benefits, and alternatives was discussed. Specifically, we discussed the risks of bleeding, infection, injury to surrounding
structures (bowel, bile ducts), CBD injury, need for open procedure. Typical postprocedure recovery including pain management in the 10 to 20% risk of fluctuations in GI function was discussed. All questions answered. Consent signed.
-- Laparoscopic cholecystectomy
-- NPO, IVF
-- Zosyn
Subjective Data
-
Date of Service: April 19, 2024
No major complaints. Pain improved. Denies nausea or vomiting with clears yesterday. No fevers.
Objective Data
-
Intake and Output
04/18/24 04/19/24 04/20/24
06:59 06:59 06:59
Intake Total 500 / 500 2980 / 2980
Balance 500 / 500 2980 / 2980
Intake:
Oral fluids 480 / 480
IV fluids (Total) 500 / 500 2400 / 2400
IV piggybacks 100 / 100
Other:
Number of approximated MODERATE 3
amounts of urine
Number of approximated LARGE 1
amounts of urine
Vital Signs
Temp Pulse Resp BP Pulse Ox
97.8 F 57 18 124/71 100
04/19/24 07:22 04/19/24 07:22 04/19/24 07:22 04/19/24 07:22 04/19/24 08:00
Lab Results
04/19/24 05:12
04/19/24 05:12
Calcium 7.9 mg/dl (8.4-10.2) L 04/19/24 05:12
Total Bilirubin 2.3 mg/dl (0.2-1.3) H D 04/19/24 05:12
Direct Bilirubin 1.4 mg/dl (0.0-0.4) H 04/19/24 05:12
AST 136 U/L (14-36) H 04/19/24 05:12
ALT 556 U/L (0-35) H* 04/19/24 05:12
Alkaline Phosphatase 158 U/L (38-126) H 04/19/24 05:12
Total Protein 5.1 g/dl (6.3-8.2) L 04/19/24 05:12
Albumin 2.8 g/dl (3.5-5.0) L 04/19/24 05:12
Physical Exam
-
Gen: NAD
Abd: soft, minimal tenderness in epigastrium, ND, non-peritoneal
--- NOTE | 2024-04-19 08:36 | W.SUR.PREOP ---
Pre-Operative Surgical Note
-
I have examined this patient prior to the performance of the scheduled procedure.
The patient's condition is unchanged from the time of the current History and
Physical and the patient is able to undergo the scheduled procedure.
--- NOTE | 2024-04-19 11:46 | W.PN.HOSP.TC ---
Today's Communication/Plan
-
Lap Estela today
Continue IVF and NPO
Continue AB
Assessment / Plan
Assessment / Plan
58-year-old female with right upper quadrant pain nausea vomiting. She was in [place] 6 weeks ago and had similar pain went to urgent care was treated with Zofran and IV fluids and was discharged.
MRI/MRCP-acute obstructing choledocholithiasis. Moderate extrahepatic and intrahepatic biliary dilatation proximal to the obstruction. Severely distended gallbladder containing stones. Acute interstitial edematous pancreatitis. Mild
hepatomegaly. 8.6 cm enhancing mass in the lateral left breast
USS abdomen-Multiple small gallstones. Mild common bile duct dilatation. These findings can be seen with acute cholecystitis. Clinical and laboratory correlation recommended.Nonvisualization of pancreas and proximal IVC.Mild hepatomegaly
NO pain
CVS: S1-S2 normal
Chest: CTA B/L
Abdomen: Soft, No tenderness, Bowel sounds present
Extremities: No edema
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
# Acute calculus cholecystitis with abnormal LFTs
Choledocholithiasis
Status post ERCP 04/18/2024
N.p.o. IV fluids
Surgery following for cholecystectomy today
Continue Zosyn
LFTs trending down
# Gallstone pancreatitis likely
IV fluids
N.p.o.
Lipase trending down
# Metabolic acidosis-improving
# Breast mass-patient is aware that she needs eval evaluation as outpatient including mammogram/ultrasound
Dr.Donna Li's consultation appreciated
Outpatient follow-up
#Alcohol use 2 glasses (Wine or Vodka) 3 times a week
Thiamine
# Quit smoking when she was 21 years old.
# DVT prophylaxis-Lovenox
# Full code
Discussed with multiple family members at bedside
D/W RN
Anticipated Discharge: Within 24 hours
Subjective/Interval History
-
Date of Service: April 19, 2024
Objective Data
-
Labs:
Laboratory Results
04/19/24
05:12
WBC 8.3
Hgb 10.6 L
Hct 31.1 L
Plt Count 199
Sodium 138
Potassium 4.0
Chloride 112 H
Carbon Dioxide 21 L
BUN 9
Creatinine 0.5 L
Glucose 93
Calcium 7.9 L
Total Bilirubin 2.3 H D
AST 136 H
ALT 556 H*
Alkaline Phosphatase 158 H
Vital Signs:
Vital Signs
Temp Pulse Resp BP Pulse Ox
97.8 F 57 18 124/71 100
04/19/24 07:22 04/19/24 07:22 04/19/24 07:22 04/19/24 07:22 04/19/24 08:00
I&O
04/18/24 04/19/24 04/20/24
06:59 06:59 06:59
Intake Total 500 / 500 2980 / 2980
Balance 500 / 500 2980 / 2980
--- NOTE | 2024-04-19 14:09 | CM ---
Mitra Palmer on this date. Discharge Plan of Care: Home with no needs. Will continue to follow should needs change.
--- NOTE | 2024-04-19 15:56 | W.IMMPOSTOP ---
Addendum entered and electronically signed by Carlos Karimi MD 04/19/24 16:23:
[facility]#[id number]
Original Note:
Surgical Immed Post Op Note
-
Primary Surgeon: Trev
Assisting Surgeon: None
Pre-op Diagnosis: Gallstone pancreatitis
Post-op Diagnosis: Gallstone pancreatitis and chronic cholecystitis
Procedure Performed: Laparoscopic cholecystectomy
Anesthesia Type: General
Specimen / Cultures:
1. Gallbladder
Estimated Blood Loss: 51 cc
Complications: None
Operative Findings:
1. Filmy omental and duodenal adhesions, dense scarring and wall thickening of GB, intra-hepatic, hydropic bile
2. Critical view of safety
3. Artery taken with clips, duct with june load stapler
[2024-04-19] MEDS: DILAUDID 0.25 MG IV ×2 (16:41→17:06)
[2024-04-19] MEDS: TORADOL 10 MG IV (16:50)
[2024-04-19 17:16] LABS: Magnesium 1.9 mg/dl (1.6-2.3)
--- NOTE | 2024-04-19 17:33 | PTCARENOTE ---
Pt arrived to [facility] from PACU s/p lap presley. Pt lap sites C/D/I, JAVA LEAD with glue. IVF infusing. Pt states no pain at this time. Bed locked and in lowest position, call cheng within reach.
[2024-04-19] MEDS: TYLENOL PO (17:35)
[2024-04-19 18:01] LABS: Vitamin D, 25-OH*** 27.5 ng/mL (30-80)
[2024-04-19] MEDS: TYLENOL 650 MG PO (20:50)
[2024-04-20] MEDS: ZOSYN 50 IV ×2 (00:25→05:25)
[2024-04-20] MEDS: TYLENOL 650 MG PO ×2 (00:27→07:39)
[2024-04-20] MEDS: NSS 1000 IV ×2 (02:57→07:41)
[2024-04-20 03:00] VITALS: BP 117/71
[2024-04-20] MEDS: TYLENOL PO (04:45)
[2024-04-20 06:57] LABS: ALT (SGPT) 459 U/L (0-35); AST (SGOT) 111 U/L (14-36); Albumin 2.8 g/dl (3.5-5.0); Alkaline Phosphatase 155 U/L (38-126); Blood Urea Nitrogen 7 mg/dl (7-17); Calcium 8.2 mg/dl (8.4-10.2); Carbon Dioxide 23 mmol/L (22-30); Chloride 112 mmol/L (98-107); Estimated Creatinine Clearance 112 ml/min; Glucose 117 mg/dl (70-99); Lipase 620 U/L (23-300); Potassium 4.3 mmol/L (3.5-5.1); Sodium 140 mmol/L (135-145); Total Bilirubin 1.3 mg/dl (0.2-1.3); Total Protein 5.2 g/dl (6.3-8.2); eGFR > 60.00
[2024-04-20 07:00] VITALS: BP 138/81
--- NOTE | 2024-04-20 07:33 | W.PN.GS2 ---
Today's Communication / Plan
-
-- Low fat diet
-- Pain control: Tylenol, Toradol, Oxycodone
-- Abx: Zosyn while in hospital, plan for 4 days Augmentin on DC
-- DC instructions updated
-- F/u General Surgery in 2-4 weeks
Assessment / Plan
-
Patient is a 58 yo F p/w gallstone pancreatitis
PPD#2 s/p ERCP with stone removal
POD#1 s/p laparoscopic cholecystectomy
Clinically improved. Less abdominal pain. Labs trending down.
-- Low fat diet
-- Pain control: Tylenol, Toradol, Oxycodone
-- Abx: Zosyn while in hospital, plan for 4 days Augmentin on DC
-- HLIV
-- Lovenox for DVT
-- DC instructions updated
-- F/u General Surgery in 2-4 weeks
Subjective Data
-
Date of Service: April 20, 2024
No major complaints. Reports some shoulder soreness and abdominal soreness. Tolerating a diet. No nausea or vomiting. No fevers. Voiding clear urine.
Objective Data
-
Intake and Output
04/19/24 04/20/24 04/21/24
06:59 06:59 06:59
Intake Total 2980 / 2980 5010 / 5010
Balance 2980 / 2980 5010 / 5010
Intake:
Oral fluids 480 / 480 960 / 960
IV fluids (Total) 2400 / 2400 3900 / 3900
Normosal 300 / 300
IV piggybacks 100 / 100 150 / 150
Other:
Number of approximated MODERATE 3 4
amounts of urine
Number of approximated LARGE 1
amounts of urine
How many times incontinent 3
MODERATE amount urine
Vital Signs
Temp Pulse Resp BP Pulse Ox
98.2 F 70 18 117/71 96
04/20/24 03:00 04/20/24 03:00 04/20/24 03:00 04/20/24 03:00 04/20/24 03:00
Lab Results
04/19/24 05:12
04/20/24 05:15
Calcium 8.2 mg/dl (8.4-10.2) L 04/20/24 05:15
Magnesium 2.0 mg/dl (1.6-2.3) 04/20/24 05:15
Total Bilirubin 1.3 mg/dl (0.2-1.3) D 04/20/24 05:15
Direct Bilirubin 1.4 mg/dl (0.0-0.4) H 04/19/24 05:12
AST 111 U/L (14-36) H 04/20/24 05:15
ALT 459 U/L (0-35) H 04/20/24 05:15
Alkaline Phosphatase 155 U/L (38-126) H 04/20/24 05:15
Total Protein 5.2 g/dl (6.3-8.2) L 04/20/24 05:15
Albumin 2.8 g/dl (3.5-5.0) L 04/20/24 05:15
Physical Exam
-
Gen: NAD
Abd: soft, appropriately tender, ND, non-peritoneal, incisions c/d/i - no erythema, ecchymosis or drainage
[2024-04-20] MEDS: THIAMINE INJECTION 200 MG IV (07:39)
[2024-04-20] MEDS: PROTONIX IV 40 MG IV (07:40)
[2024-04-20] MEDS: NSS (PRESERVATIVE FREE) 10 ML IV (07:40)
--- NOTE | 2024-04-20 09:39 | W.PN.HOSP.TC ---
Today's Communication/Plan
-
Discharge
Seems to be requiring only Tylenol for pain
Can also take ibuprofen on a full stomach with Pepcid
Assessment / Plan
Assessment / Plan
58-year-old female with right upper quadrant pain nausea vomiting. She was in [place] 6 weeks ago and had similar pain went to urgent care was treated with Zofran and IV fluids and was discharged.
MRI/MRCP-acute obstructing choledocholithiasis. Moderate extrahepatic and intrahepatic biliary dilatation proximal to the obstruction. Severely distended gallbladder containing stones. Acute interstitial edematous pancreatitis. Mild
hepatomegaly. 8.6 cm enhancing mass in the lateral left breast
USS abdomen-Multiple small gallstones. Mild common bile duct dilatation. These findings can be seen with acute cholecystitis. Clinical and laboratory correlation recommended.Nonvisualization of pancreas and proximal IVC.Mild hepatomegaly
Mild right shoulder discomfort. But over all feeling great. Wants to go home.
CVS: S1-S2 normal
Chest: CTA B/L
Abdomen: Soft, No tenderness, Bowel sounds present, laparoscopic wounds stable
Extremities: No edema
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
# Acute on chronic calculus cholecystitis with abnormal LFTs
Choledocholithiasis
Status post ERCP 04/18/2024
Status post laparoscopic cholecystectomy by Dr. Mortensen on 04/19/2024
Low fat diet- seems to be tolerating.
Zosyn to be changed to Augmentin at discharge for 4 more days per surgeon
LFTs trending down
Doing well postoperatively except for mild discomfort in the right shoulder
# Gallstone pancreatitis likely
Stop IVF
Lipase trending down
# Metabolic acidosis-resolved
# Breast mass-patient is aware that she needs eval evaluation as outpatient including mammogram/ultrasound
Dr.Donna Li's consultation appreciated
Outpatient follow-up
#Alcohol use 2 glasses (Wine or Vodka) 3 times a week
Thiamine
# Quit smoking when she was 21 years old.
# Mild vitamin D deficiency supplement 2 times a week and repeat as outpatient
# DVT prophylaxis-Lovenox
# Full code
Discussed about follow up needs
D/W RN
More than 30 minutes spent in discharge including
Final examination of the patient
Summarizing hospital stay
Instructions for continuing care to all relevant caregivers
Preparation of discharge records, prescriptions, and referral forms
Total time spent (in minutes): 31 min
Anticipated Discharge: Today
Subjective/Interval History
-
Date of Service: April 20, 2024
Objective Data
-
Labs:
Laboratory Results
04/20/24
05:15
Sodium 140
Potassium 4.3
Chloride 112 H
Carbon Dioxide 23
BUN 7
Creatinine 0.6
Glucose 117 H
Calcium 8.2 L
Total Bilirubin 1.3 D
AST 111 H
ALT 459 H
Alkaline Phosphatase 155 H
Vital Signs:
Vital Signs
Temp Pulse Resp BP Pulse Ox
98.1 F 58 18 138/81 98
04/20/24 07:00 04/20/24 07:00 04/20/24 07:00 04/20/24 07:00 04/20/24 08:00
I&O
04/19/24 04/20/24 04/21/24
06:59 06:59 06:59
Intake Total 2980 / 2980 5010 / 5010
Balance 2980 / 2980 5010 / 5010
--- NOTE | 2024-04-20 09:50 | W.DS.TRANS ---
Addendum entered and electronically signed by Rebecca De MD 04/20/24 15:32:
Dictation- [id number]
Original Note:
DC Summary - Plugger
-
Discharge Instructions:
Discharge Diagnosis/Procedures Gallstone pancreatitis, choledocholithiasis,
chronic cholecystitis, small left breast mass
Diet Low Fat
Activity No strenuous activity
Additional Activity No heavy lifting (>20 lbs) or strenuous
activities for 3 weeks postoperatively
Driving Restrictions No driving if too sore or taking narcotics
Bathing Restrictions OK to Shower
Blood Work CBC,LFT,BMP, 1 week. Vitamin D level 2 months
Wound Care Keep incisions clean and dry. Glue will flake
off in 2 to 3 weeks. Stitches will dissolve.
Use ice to the abdomen to reduce any bruising
and swelling.
Instructions:
Stand-Alone Forms:
Changes to Home Medications: Yes
Discharge Medications:
DC Medications w/original date entered in [employer] [place]
acetaminophen 325 mg tablet 650 mg (2 x 325 mg) PO Q4HPRN PRN mild pain #1 tab 04/20/24
amoxicillin 875 mg-potassium clavulanate 125 mg tablet 1 tab PO Q12 antibiotic 4 days #8 tabs 04/20/24
cholecalciferol (vitamin D3) 25 mcg (1,000 unit) capsule (Vitamin D3) 25 mcg PO MOFR Supplement #20 caps 04/20/24
ibuprofen 200 mg tablet 400 - 600 mg (2 - 3 x 200 mg) PO Q6HPRN PRN moderate pain #1 tab 04/20/24
oxycodone 5 mg tablet 5 mg PO Q4HPRN PRN breakthrough/severe pain #10 tabs 04/20/24
Home Medication Changes
all above meds new
Pending Results: Yes
Additional Pending Results:
path
[2024-04-20 10:55] VITALS: BP 144/86
--- NOTE | 2024-04-20 11:19 | CM ---
Patient has been medically cleared for discharge to home with no additional skilled services. Family will transport home.
== END 2024-04-20 11:21 | disposition home or self-care (01) | DRG 418 ==
LOC: 2 SOUTH 23:15
PROVIDERS: Clinical Nurse Specialist Family Health; Emergency Medicine; ADMITTING PHYSICIAN Hospitalist; ATTENDING PHYSICIAN Hospitalist; CONSULT PHYSICIAN Internal Medicine Gastroenterology; CONSULT PHYSICIAN Surgery; EMERGENCY PHYSICIAN Student in an Organized Health Care Education/Training Program
PROC: 0FC98ZZ Extirpation of Matter from Common Bile Duct, Via Natural or Artificial Opening Endoscopic (ICD-10-PCS; 2024-04-18)
PROC: 0FT44ZZ Resection of Gallbladder, Percutaneous Endoscopic Approach (ICD-10-PCS; 2024-04-19)
DX: K85.10 Biliary acute pancreatitis without necrosis or infection (principal); E87.20 Acidosis, unspecified; K80.66 Calculus of gallbladder and bile duct with acute and chronic cholecystitis without obstruction; N63.20 Unspecified lump in the left breast, unspecified quadrant; E55.9 Vitamin D deficiency, unspecified; K66.0 Peritoneal adhesions (postprocedural) (postinfection); K76.0 Fatty (change of) liver, not elsewhere classified; Z87.442 Personal history of urinary calculi; Z87.891 Personal history of nicotine dependence
CPT/HCPCS: 88304; 71046; 74183; 74330; 76000; 76700; 80053; 80061; 82248; 82306; 83690; 83735; 84484; 85025; 85027; 93005; 96361; 96374; 96375; 96376; 99285; A9575; C1769

== ENCOUNTER → 2024-04-27 09:58 | Outpatient (REF) | payer OTHER, SELFPAY | LOC: WDC 09:58 | PROVIDERS: ATTENDING PHYSICIAN Surgery | DX: N63.20 Unspecified lump in the left breast, unspecified quadrant (principal); N63.23 Unspecified lump in the left breast, lower outer quadrant | CPT/HCPCS: 76642; 77062; 77066 ==